=== PATIENT | female | born 1960 | race Caucasian/White ===

== ENCOUNTER 2020-08-01 13:00 | Emergency (ER) | payer MEDICARE ==
[~2020-08-01] VITALS: Ht 162.6 cm; Wt 45.4 kg
[2020-08-01 18:23] VITALS: BP 105/72
== END 2020-08-01 18:27 ==
LOC: ER 13:32
DX: Z43.0 Encounter for attention to tracheostomy (principal); E11.9 Type 2 diabetes mellitus without complications; F84.0 Autistic disorder; G40.909 Epilepsy, unspecified, not intractable, without status epilepticus
CPT/HCPCS: 99284